=== PATIENT | male | born 1985 | race African-American/Black ===

== ENCOUNTER 2020-04-08 11:40 | Emergency (ER) | payer SELFPAY ==
[2020-04-08 11:43] VITALS: BP 116/72; PULSE 83; TEMP 98; BMI 25.1
--- OUTSIDE RECORDS SUMMARY | 2020-04-08 11:57 | XMS ---
:1985 Author Organization [facility] Care Team Providers Name Role Phone ANDREW IBARRA Unavailable Unavailable Re-disclosure Warning The records that you are about to access may contain information from federally- assisted alcohol or drug abuse programs. If such information is present, then the following federally mandated warning applies: This information has been disclosed to you from records protected by federal confidentiality rules (42 CFR part 2). The federal rules prohibit you from making any further disclosure of this information unless further disclosure is expressly permitted by the written consent of the person to whom it pertains or as otherwise permitted by 42 CFR part 2. A general authorization for the release of medical or other information is NOT sufficient for this purpose. The Federal rules restrict any use of the information to criminally investigate or prosecute any alcohol or drug abuse patient.The records that you are about to access may contain highly sensitive health information, the redisclosure of which is protected by Article 27-F of the [facility] Public Health law. If you continue you may haveaccess to information: Regarding HIV / AIDS; Provided by facilities licensed or operated by the [facility] Office of Mental Health; or Provided by the [facility] Office for People With Developmental Disabilities. If such information is present, then the following [facility] mandated warning applies: This information has been disclosed to you from confidential records which are protected by state law. State law prohibits you from making any further disclosure of this information without the specific written consent of the person to whom it pertains, or as otherwise permitted by law. Any unauthorized further disclosure in violation of state law may result in a fine or mcc sentence or both. A general authorization for the release of medical or other information is NOT sufficient authorization for further disclosure. Encounters Encounter Providers Location Date Indications Data Source(s ) Outpatient Attender: ANDREW Moore 03/14/2020 [facility] CHARLI DELLAdmitter: 12:00:00 PM [facility] ANDREW MORALES EDT Insurance Providers Payer name Policy type Policy ID Covered Covered republican's Policy P hawa / Coverage republican ID relationship to [employer] type [employer]os PENDING [id number] SP [id number] WC/NF ONLY W [id number] Problems, Conditions, and Diagnoses Code Display Name Description Problem Type Effective Data Sour ce(s) Dates F17.200 Nicotine NICOTINE Diagnosis 03/28/2020 [facility] dependence, DEPENDENCE, 12:00:[address] unspecified, UNSPECIFIED, EDT uncomplicated UNCOMPLICATED F10.10 Alcohol abuse, ALCOHOL ABUSE, Diagnosis 03/28/2020 [facility] uncomplicated UNCOMPLICATED 12:00:00 [facility] EDT F12.20 Cannabis CANNABIS Diagnosis 03/14/2020 [facility] dependence, DEPENDENCE, 12:00:[address] uncomplicated UNCOMPLICATED EDT F12.10 Cannabis abuse, CANNABIS ABUSE, Diagnosis 03/14/2020 [facility] uncomplicated UNCOMPLICATED 12:00:00 [facility] EDT
[2020-04-08] MEDS ORDERED: KETOROLAC TROMETHAMINE 30 MG/1 ML VIAL IM ONE (12:40)
[2020-04-08] MEDS ORDERED: METHOCARBAMOL 500 MG TABLET PO ONE (12:41)
[2020-04-08] MEDS ORDERED: KETOROLAC TROMETHAMINE 30 MG/1 ML VIAL ONE (12:41)
[2020-04-08] MEDS ORDERED: METHOCARBAMOL 500 MG TABLET ONE (12:41)
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
== END 2020-04-08 13:45 | disposition home or self-care (01) ==
LOC: JERFT 11:40
PROC: 3E0233Z Introduction of Anti-inflammatory into Muscle, Percutaneous Approach (ICD-10-PCS; principal; 2020-04-08)
DX: S49.91XA Unspecified injury of right shoulder and upper arm, initial encounter (principal)
CPT/HCPCS: 73030-TC-RT-FY; 99284-25